=== PATIENT | female | born 1990 | race Native Hawaiian/Other Pacific Islander ===

== ENCOUNTER 2016-09-14 08:14 | Emergency (ER) | payer OTHER ==
[~2016-09-14] VITALS: Ht 170.2 cm; Wt 115.7 kg
[2016-09-14 10:20] LABS: PLATELET COUNT 336 K/uL (152-353)
[2016-09-14 10:48] LABS: POTASSIUM 3.8 mmol/L (3.6-5.2); SODIUM 137 mmol/L (136-145)
[2016-09-14 11:15] VITALS: BP 142/97; TEMP 97.8
== END 2016-09-14 11:22 | disposition home or self-care (01) ==
LOC: ED 08:14
DX: R55 Syncope and collapse (principal)
CPT/HCPCS: 36415; 80053; 81000; 85027; 87081; 87804; 87880; 96360; 99284

== ENCOUNTER 2016-09-26 15:29 | Observation (INO) | payer OTHER ==
[~2016-09-26] VITALS: Ht 170.2 cm; Wt 125.4 kg
[2016-09-26 15:49] LABS: PLATELET COUNT 293 K/uL (152-353)
[2016-09-26 15:53] LABS: POTASSIUM 3.8 mmol/L (3.6-5.2); SODIUM 137 mmol/L (136-145)
--- NOTE | 2016-09-26 18:00 | NUR ---
Pt. TO ROOM [address] TRINIDAD. Pt. C/O NO BOWEL MOVEMENT X9 DAYS. TOOK X3 DIFFERENT LAXATIVE. NO RESULTS. C/O ABD PAIN WITH NAUSEA.
[2016-09-26 18:34] VITALS: BP 149/86; TEMP 98.6; Ht 170.2 cm; Wt 125.4 kg
[2016-09-26 20:00] VITALS: BP 128/75; TEMP 98.2
[2016-09-27] VITALS: BP 121/78; TEMP 98.1
[2016-09-27 04:00] VITALS: BP 112/70; TEMP 98
[2016-09-27 07:40] VITALS: BP 127/75; TEMP 98.2
[2016-09-27 08:17] LABS: POTASSIUM 3.6 mmol/L (3.6-5.2); SODIUM 140 mmol/L (136-145)
[2016-09-27 08:31] LABS: PLATELET COUNT 267 K/uL (152-353)
[2016-09-27 12:00] VITALS: BP 149/94; TEMP 97.9
--- NOTE | 2016-09-27 13:20 | NUR ---
SOAP SUDS ENEMA DONE ON PATIENT 1000ML OF FLUID. NO WATER OR STOOL OBTAINED ON RETURN. PATIENT WALKED TO RESTROOM IN ROOM. INFORMED HER TO LET ME OR PCT KNOW TO VIEW RESULTS. PATIENT STATED OK.
[2016-09-27 16:18] VITALS: BP 138/79; TEMP 97.4
--- NOTE | 2016-09-27 19:00 | NUR ---
NOTIFIED DR TRINIDAD PT REFUSING ENEMAS AND REQUESTING FOOD. GAVE NEW ORDERS TO FEED IF NO N/V AND D/C IN AM.
[2016-09-27 20:00] VITALS: BP 147/75; TEMP 98.4
[2016-09-28 00:19] VITALS: BP 141/91; TEMP 98.2
--- NOTE | 2016-09-28 01:21 | NUR ---
09/27/16 AT 2200PT TOLERATED A SNACK(SOFT DIET) WITH NO PAIN, N/V, OR OTHER PROBLEMS. WILL MONITOR.
[2016-09-28 04:00] VITALS: BP 110/67; TEMP 98.4
[2016-09-28 05:03] LABS: PLATELET COUNT 280 K/uL (152-353)
[2016-09-28 05:24] LABS: POTASSIUM 3.8 mmol/L (3.6-5.2); SODIUM 140 mmol/L (136-145)
[2016-09-28 08:00] VITALS: BP 143/81; TEMP 98.5
[2016-09-28 12:12] VITALS: BP 143/92; TEMP 98.1
== END 2016-09-28 13:25 | disposition home or self-care (01) ==
LOC: LABW 15:29 → MED/SURG 17:46
PROVIDERS: Emergency Medicine; ADMIT Family Medicine
DX: R10.84 Generalized abdominal pain (principal); R11.0 Nausea; K59.09 Other constipation; D72.828 Other elevated white blood cell count; N20.0 Calculus of kidney; N28.1 Cyst of kidney, acquired
CPT/HCPCS: 36415; 80053; 82150; 83690; 83735; 84439; 84443; 85027; 96360; 96361; 96366; 96374; 99220; G0378; J3490; Q9963

== ENCOUNTER 2016-10-01 03:39 | Emergency (ER) | payer OTHER ==
[~2016-10-01] VITALS: Ht 170.2 cm; Wt 126.1 kg
[2016-10-01 03:54] VITALS: TEMP 98.3
[2016-10-01 04:16] LABS: PLATELET COUNT 319 K/uL (152-353)
[2016-10-01 04:23] LABS: POTASSIUM 3.6 mmol/L (3.6-5.2); SODIUM 139 mmol/L (136-145)
[2016-10-01 07:38] VITALS: BP 154/98
== END 2016-10-01 07:39 | disposition home or self-care (01) ==
LOC: ED 03:39
PROVIDERS: Specialist
DX: K59.09 Other constipation (principal)
CPT/HCPCS: 36415; 80053; 85027; 96374; 99283; J2550

== ENCOUNTER 2016-10-17 03:40 | Emergency (ER) | payer OTHER ==
[~2016-10-17] VITALS: Ht 170.2 cm; Wt 108.9 kg
[2016-10-17 04:18] LABS: PLATELET COUNT 337 K/uL (152-353)
[2016-10-17 04:24] LABS: POTASSIUM 3.6 mmol/L (3.6-5.2); SODIUM 140 mmol/L (136-145)
[2016-10-17 07:10] VITALS: BP 143/98; TEMP 98
== END 2016-10-17 07:10 | disposition home or self-care (01) ==
LOC: ED 03:40
PROVIDERS: Specialist
DX: N20.0 Calculus of kidney (principal)
CPT/HCPCS: 36415; 80053; 81000; 81025; 85027; 96361; 96374; 96375; 99284; J1170; J1885; J2405

== ENCOUNTER 2016-11-09 12:50 | Outpatient (CLI) | payer OTHER | END 2016-11-09 13:50 | disposition home or self-care (01) | LOC: RAD 12:50 | DX: M54.2 Cervicalgia (principal); M54.5 Low back pain; M62.838 Other muscle spasm ==

== ENCOUNTER 2017-01-02 13:33 | Emergency (ER) | payer OTHER ==
[~2017-01-02] VITALS: Ht 170.2 cm; Wt 116.6 kg
[2017-01-02 13:40] VITALS: TEMP 98.4
[2017-01-02 14:20] LABS: PLATELET COUNT 267 K/uL (152-353)
[2017-01-02 14:36] LABS: POTASSIUM 3.2 mmol/L (3.6-5.2); SODIUM 140 mmol/L (136-145)
[2017-01-02 16:13] VITALS: BP 156/89
== END 2017-01-02 16:15 | disposition home or self-care (01) ==
LOC: ED 13:33
PROVIDERS: Family Medicine
DX: R19.7 Diarrhea, unspecified (principal); E86.0 Dehydration; R55 Syncope and collapse; K21.9 Gastro-esophageal reflux disease without esophagitis
CPT/HCPCS: 36415; 74022; 80048; 81000; 82550; 85027; 93005; 99283

== ENCOUNTER 2017-08-27 21:35 | Emergency (ER) | payer OTHER ==
[~2017-08-27] VITALS: Ht 170.2 cm; Wt 122.5 kg
[2017-08-27 21:45] VITALS: TEMP 98.6
[2017-08-27 22:56] LABS: POTASSIUM 3.7 mmol/L (3.6-5.2)
[2017-08-27 22:59] LABS: PLATELET COUNT 319 K/uL (152-353)
[2017-08-28 00:17] VITALS: BP 170/98
== END 2017-08-28 00:18 | disposition home or self-care (01) ==
LOC: ED 21:35
DX: J32.0 Chronic maxillary sinusitis (principal)
CPT/HCPCS: 80053; 81000; 85027; 99283

== ENCOUNTER 2017-11-10 09:09 | Emergency (ER) | payer OTHER ==
[~2017-11-10] VITALS: Ht 167.6 cm; Wt 122.5 kg
[2017-11-10 09:13] VITALS: TEMP 97.3
[2017-11-10 09:59] LABS: PLATELET COUNT 304 K/uL (152-353)
[2017-11-10 10:11] LABS: POTASSIUM 3.9 mmol/L (3.6-5.2)
[2017-11-10 11:30] VITALS: BP 145/90
== END 2017-11-10 11:39 | disposition home or self-care (01) ==
LOC: ED 09:09
PROVIDERS: Family Medicine
DX: R10.84 Generalized abdominal pain (principal); K62.5 Hemorrhage of anus and rectum
CPT/HCPCS: 36415; 74022; 80053; 82150; 82272; 83690; 85027; 96360; 99284

== ENCOUNTER 2018-08-20 12:58 | Outpatient (CLI) | payer OTHER ==
[~2018-08-20] VITALS: Ht 172.7 cm; Wt 130.2 kg
[2018-08-20 13:30] VITALS: BP 125/84; TEMP 98.3
== END 2018-08-20 23:18 | disposition home or self-care (01) ==
LOC: INF 12:58
DX: R11.0 Nausea (principal); K59.09 Other constipation; I10 Essential (primary) hypertension
CPT/HCPCS: 96365; J2550

== ENCOUNTER 2019-04-28 19:38 | Emergency (ER) | payer OTHER | END 2019-04-28 20:10 | disposition home or self-care (01) | LOC: ED 19:38 | DX: R11.10 Vomiting, unspecified (principal); K52.9 Noninfective gastroenteritis and colitis, unspecified | CPT/HCPCS: 99281 ==

== ENCOUNTER 2019-04-29 07:07 | Emergency (ER) | payer OTHER ==
[~2019-04-29] VITALS: Ht 172.7 cm; Wt 124.7 kg
[2019-04-29 07:57] LABS: PLATELET COUNT 296 K/uL (152-353)
[2019-04-29 08:01] LABS: POTASSIUM 3.7 mmol/L (3.6-5.2)
[2019-04-29 09:45] VITALS: BP 131/82; TEMP 97.5
== END 2019-04-29 09:45 | disposition home or self-care (01) ==
LOC: ED 07:07
PROVIDERS: Student in an Organized Health Care Education/Training Program
DX: R11.2 Nausea with vomiting, unspecified (principal); K52.89 Other specified noninfective gastroenteritis and colitis
CPT/HCPCS: 36415; 80053; 81000; 81025; 83690; 83735; 85027; 87502; 96360; 96375; 99284; J2405

== ENCOUNTER 2019-09-09 08:27 | Outpatient (CLI) | payer OTHER | END 2019-09-09 22:20 | disposition home or self-care (01) | LOC: RAD 08:27 | DX: E66.01 Morbid (severe) obesity due to excess calories (principal); Z68.42 Body mass index [BMI] 45.0-49.9, adult; G47.33 Obstructive sleep apnea (adult) (pediatric); R12 Heartburn ==

== ENCOUNTER 2019-12-09 18:10 | Emergency (ER) | payer OTHER ==
[~2019-12-09] VITALS: Ht 172.7 cm; Wt 120.2 kg
[2019-12-09 19:47] LABS: PLATELET COUNT 329 K/uL (152-353)
[2019-12-09 19:52] LABS: POTASSIUM 3.8 mmol/L (3.6-5.2); SODIUM 143 mmol/L (136-145)
[2019-12-09 20:43] VITALS: BP 168/94; TEMP 98.7
== END 2019-12-09 20:43 | disposition home or self-care (01) ==
LOC: ED 18:10
PROVIDERS: Emergency Medicine
DX: R00.2 Palpitations (principal)
CPT/HCPCS: 36415; 80053; 82550; 83880; 84484; 85027; 93005; 99283

== ENCOUNTER 2020-01-15 22:48 | Emergency (ER) | payer OTHER ==
[~2020-01-15] VITALS: Ht 170.2 cm; Wt 128.4 kg
[2020-01-15 22:55] VITALS: TEMP 98.5
[2020-01-15 23:44] LABS: PLATELET COUNT 328 K/uL (152-353)
[2020-01-15 23:48] LABS: POTASSIUM 3.8 mmol/L (3.6-5.2)
[2020-01-15 23:55] LABS: PARTIAL THROMBOPLASTIN TIME 29.7 SECONDS (24.5-33.6)
[2020-01-16 02:45] VITALS: BP 121/86
== END 2020-01-16 02:40 | disposition home or self-care (01) ==
LOC: ED 22:48
PROVIDERS: Family Medicine
DX: I88.0 Nonspecific mesenteric lymphadenitis (principal); N83.291 Other ovarian cyst, right side; Z98.84 Bariatric surgery status
CPT/HCPCS: 36415; 80053; 81000; 81025; 85027; 85610; 85730; 96374; 99284; J1885; Q9963

== ENCOUNTER 2021-06-29 15:47 | Observation (INO) | payer OTHER ==
[~2021-06-29] VITALS: Ht 170.2 cm; Wt 83.5 kg
[2021-06-29 17:03] LABS: PLATELET COUNT 271 K/uL (152-353)
[2021-06-29 17:17] LABS: PARTIAL THROMBOPLASTIN TIME 25.4 SECONDS (24.5-33.6)
[2021-06-29 17:21] LABS: POTASSIUM 3.8 mmol/L (3.6-5.2)
[2021-06-29 18:01] VITALS: BP 121/87; TEMP 98.6; Ht 170.2 cm; Wt 83.5 kg
[2021-06-29 20:00] VITALS: BP 140/80; TEMP 98.5
[2021-06-30] VITALS: BP 105/53; TEMP 98.3
[2021-06-30 04:00] VITALS: BP 106/76; TEMP 97.7
[2021-06-30 05:34] LABS: PLATELET COUNT 228 K/uL (152-353)
[2021-06-30 08:00] VITALS: BP 137/90; TEMP 98
[2021-06-30 12:00] VITALS: BP 117/73; TEMP 98.2
== END 2021-06-30 15:40 | disposition home or self-care (01) ==
LOC: MED/SURG 15:47
PROVIDERS: ADMIT Family Medicine; ATTEND Family Medicine
DX: K62.5 Hemorrhage of anus and rectum (principal); R10.9 Unspecified abdominal pain; E86.0 Dehydration; K59.09 Other constipation
CPT/HCPCS: 36415; 80053; 81000; 82272; 84443; 85027; 85610; 85730; 87635; 96360; 96361; 96374; 99220; G0378; G0379; J3490; Q9963; U0003